=== PATIENT | female | born 1950 | race Caucasian/White ===

== ENCOUNTER → 2017-04-12 | Outpatient (CLI) | payer OTHER ==
[2014-09-04 09:49] VITALS: BP 164/69
--- NOTE | 2017-04-13 18:19 | MG ---
HISTORY: SCREENING Comparison: March 25, 2015 and March 31, 2016 FINDINGS: Bilateral CC and MLO projections of the right and left breast were obtained. Scattered fibroglandula r tissue is seen to be present without significant interval change. No suspicious architectural dist ortion, mass or clustered microcalcifications can be observed to suggest malignancy. No skin thicken ing or nipple retraction is appreciated. No pathological lymphadenopathy can be identified. Benign- appearing calcifications are noted within the right and left breast. IMPRESSION: NO RADIOGRAPHIC EVIDENCE OF MALIGNANCY. ACR CATEGORY 2 - benign findings. FOLLOW-UP EXAM 1 YEAR. Diagnostic CAD was utilized and reviewed. * 0 (ZERO) - ASSESSMENT INCOMPLETE; ADDITIONAL IMAGING IS NEEDED. * 1/1 (ONE) - NEGATIVE. * 2/II (TWO) - BENIGN FINDINGS. * 3/III (THREE) - PROBABLY BENIGN FINDING; SHORT INTERVAL FOLLOW-UP SUGGESTED. * 4/IV (FOUR) - SUSPICIOUS ABNORMALITY; BIOPSY SHOULD BE CONSIDERED. * 5/V - HIGHLY SUSPICIOUS OF MALIGNANCY; BIOPSY SHOULD BE PERFORMED. A NEGATIVE X-RAY REPORT SHOULD NOT DELAY BIOPSY IF A DOMINANT OR CLINICALLY SUSPICIOUS MASS IS PRESENT; 4 TO 8 PERCENT OF CANCERS ARE NOT IDENTIFIED BY X-RAY. A NEGA TIVE REPORT MAY REINFORCE THE CLINICAL IMPRESSION. ADENOSIS AND DENSE BREASTS MAY OBSCURE AN UNDERLY ING NEOPLASM. Reported By:
== END ==
LOC: RAD 09:11
PROVIDERS: ATTEND Internal Medicine
DX: Z12.31 Encounter for screening mammogram for malignant neoplasm of breast (principal)
CPT/HCPCS: 77067

== ENCOUNTER 2019-03-08 14:40 | Inpatient (IN) ==
[2019-03-08 14:43] VITALS: BMI 38.7
--- NOTE | 2019-03-08 15:06 | ED.ABDFE ---
HPI Time Seen Time Seen by Provider: 03/08/19 15:06 PCP Primary Care Physician: FELIPE HPI Comment HPI Comment: PPATIENT IS 69YR OLD WHITE FEMALE IN THE EMERGENCY ROOM WITH SEVERE RUQ ABDOMINAL PAIN TIMES 3 DAYS. WORSE TODAY. SAW PCP THIS AM. WANTED CT DONE FOR EVALUATION OF PAIN. NO FEVER, NAUSEA OR VOMITING.. HAD RIFGR NEPHRECTOMY FOR CA IN THE PAST. Complaint Doctors Chief Complaint Comments: RUQ ABDOMINAL PAIN TIMES 3 DAYS. Chief Complaint:: PT. C/O SEVERE RIGHT FLANK/RUQ PAIN WHICH BEGAN ON TUESDAY. PT. SEEN PCP THIS MORNING. PT. STATES SHE THOUGHT SHE HAD A PULLED MUSCLE BUT THE PAIN HAS GOTTEN WORSE. Reviewed Nurses Notes Review: Yes Source History Provided: Patient Mode of arrival Mode of Arrival: Ambulatory Timing Onset of Chief Complaint: 03/05/19 Came on: Suddenly Duration Since Onset: Constant Duration: Days Location Location: RUQ Severity Severity: Severe Context History of: None Modifying factors Worsening Factors: Exertion Improving Factors: Lying Still Associated signs and symptoms Associated Signs and Symptoms: None Other history Other History: HISTORY GALL STONE. PMH PMH Past Medical History: Yes Past Medical History: Hypertension and Hypothyroidism Past Surgical History: Yes Surgical History: , Hysterectomy, Tonsillectomy and Other Past Surgical History Comment: RIGHT NEPHRECTOMY, CATARACTS Family History History of Family Medical Conditions: Yes Family Medical History: Diabetes Mellitus and Heart Failure Social History Does patient currently use any type of tobacco product: No Have you used tobacco products in the last 12 months: No Type of Tobacco Use: None Does any household member use tobacco: No Alcohol Use: None Do you use any recreational Drugs:: No Lives With: Spouse Lives Where: Home infectious screening In the last 2 months have you had wt loss of >10#?: NO Have you had fever, night sweats or hemotysis?: No Have you traveled outside the country in the last 6 months?: No Isolation: Standard ROS Review of Systems Constitutional: No Symptoms Reported and See HPI; negative Fever, Weakness and Fatigue Eyes: No Symptoms Reported and See HPI; negative Blurred Vision, Photophobia and Diplopia ENTM: No Symptoms Reported and See HPI; negative Ear Pain, Nose Discharge, Nose Congestion and Throat Pain Respiratoy: No Symptoms Reported and See HPI; negative Moist Cough, Short of Breath and Wheezing Cardiovascular: No Symptoms Reported and See HPI; negative Chest Pain and Edema Gastrointestinal/Abdominal: No Symptoms Reported, See HPI and Abdominal Pain; negative Constipation, Diarrhea, Nausea and Vomiting Genitourinary: No Symptoms Reported and See HPI; negative Dysuria, Frequency, Hematuria and Pain Neurological: No Symptoms Reported and See HPI; negative Headache, Weakness and Dizziness Musculoskeletal: See HPI, Back Pain and Muscle Pain Integumentary: No Symptoms Reported and See HPI; negative Change in Color, Rash and Juandice Hematologic/Lymphatic: No Symptoms Reported and See HPI; negative Easy Bruising and Swollen Glands Endocrine: No Symptoms Reported and See HPI; negative Increased Thirst and Increased Urine Psychiatric: No Symptoms Reported and See HPI All Other Systems: Reviewed and Negative PE Vital Signs Vitals: Temperature 97 F Pulse Rate 86 Respiratory Rate 18 Blood Pressure 196/82 O2 Sat by Pulse Oximetry 99 General Limitations: No Limitations and Language Barrier General Appearance: Alert and In No Apparent Distress Head Head Exam: Normal Inspection and Atraumatic Eyes Eye exam: Normal Appearance, PERRL and EOMI; negative Scleral Icterus and Conjunctival Injection ENT ENT Exam: Normal Exam, Normal Oropharynx, Normal External Ear Exam and TM's Normal Bilaterally Neck Neck Exam: Normal Inspection; negative Trachea Midline, Tenderness and Lymphadenopathy Chest Chest Inspection: Normal Inspection and Symmetric Chest Wall Rise; negative Tenderness Respiratory Respiratory Exam: Normal Lung Sounds Bilat; negative Accessory Muscle Use, Chest Wall Tenderness and Respiratory Distress Respiratory Exam: Bilateral: Clear to Auscultation Cardiovascular Cardiovascular Exam: Regular Rate and Normal Rhythm Abdominal Exam Abdominal Exam: Normal Bowel Sounds and Soft; negative Tenderness Rectal Rectal Exam: Deferred Back Back Exam: Normal Inspection and (R) CVA Tenderness Extremeties Extremities Exam: Normal Inspection External Exam: Female: Deferred : Speculum Exam (Female): Deferred : Bimanual Exam (female): Deferred Neurologic Neurological Exam: Alert and Oriented X3; negative CN II-XII Intact and Motor Sensory Deficit Psychiatric Psychiatric Exam: Normal Affect and Normal Mood Skin Skin Exam: Warm, Dry and Intact MDM Differential Diagnosis Differential Diagnosis- Considerations may include:: Bowel Obstruction, Chol cystitis, Cholelethiasis, Constipation, Diverticular disease, Gastritus/PUD, Pancreatitis, Urinary tract infection and Urolithiasis COURSE Treatment Treatment: SEE ORDERS. Consultation Consultation Comments: DISCUSSED PATIENT WITH DR. DUPONT, SURGEON. WANT PCP TO ADMIT PATIENT FOR POSSIBLE CHOLECYSTECTOM. DR. WANG WILL ADMIT PATIENT. Education/Counseling Education/Counseling: Patient Educated On: Diagnosis ROR Labs Reviewed Laboratory Results Reviewed?: Yes Result Diagrams: 03/09/19 05:50 03/09/19 05:50 Laboratory: WBC 10.2 X10^3/uL (3.6-10.0) H 03/08/19 15:37 RBC 4.46 X10^6/uL (3.5-5.4) 03/08/19 15:37 Hgb 13.0 g/dL (12.0-16.0) 03/08/19 15:37 Hct 38.8 % (36.0-47.0) 03/08/19 15:37 MCV 86.9 fL (80.0-100.0) 03/08/19 15:37 MCH 29.0 pg (27.0-34.0) 03/08/19 15:37 MCHC 33.4 g/dL (33.0-35.0) 03/08/19 15:37 RDW 15.0 % (11.6-16.5) 03/08/19 15:37 Plt Count 348 X10^3/uL (150.0-450.0) 03/08/19 15:37 MPV 6.6 fL (7.4-11.0) L 03/08/19 15:37 Neut % (Auto) 78.2 % (42.0-75.0) H 03/08/19 15:37 Lymph % (Auto) 14.4 % (21.0-51.0) L 03/08/19 15:37 [place] % (Auto) 5.7 % (0.0-13.0) 03/08/19 15:37 Eos % (Auto) 1.2 % (0.9-2.9) 03/08/19 15:37 Baso % (Auto) 0.5 % (0.2-1.0) 03/08/19 15:37 Neut # (Auto) 8.0 x10^3/uL (2.2-4.8) H 03/08/19 15:37 Lymph # (Auto) 1.5 X10^3/uL (1.3-2.9) 03/08/19 15:37 [place] # (Auto) 0.6 x10^3/uL (0.3-0.8) 03/08/19 15:37 Eos # (Auto) 0.1 x10^3/uL (0.0-0.2) 03/08/19 15:37 Baso # (Auto) 0.1 X10^3/uL (0.0-0.1) 03/08/19 15:37 Absolute Nucleated RBC 0.0 /100WBC 03/08/19 15:37 Sodium 137 mmol/L (136-145) 03/08/19 15:37 Corrected Sodium 138 mmol/L (136-145) 03/08/19 15:37 Potassium 4.4 mmol/L (3.5-5.1) 03/08/19 15:37 Chloride 101 mmol/L (98-107) 03/08/19 15:37 Carbon Dioxide 31.7 mmol/L (21-32) 03/08/19 15:37 BUN 28 mg/dL (7-18) H 03/08/19 15:37 Creatinine 1.22 mg/dL (0.55-1.02) H 03/08/19 15:37 Est GFR (MDRD) Af Amer 56 (>60) L 03/08/19 15:37 Est GFR (MDRD) Non-Af 46 (>60) L 03/08/19 15:37 Glucose 151 mg/dL (65-99) H 03/08/19 15:37 Calcium 9.6 mg/dL (8.5-10.1) 03/08/19 15:37 Corrected Calcium TNP 03/08/19 15:37 Total Bilirubin 0.10 mg/dL (0.2-1.0) L 03/08/19 15:37 AST 18 Units/L (15-37) 03/08/19 15:37 ALT 19 Units/L (12-78) 03/08/19 15:37 Alkaline Phosphatase 62 Units/L (46-116) 03/08/19 15:37 Creatine Kinase 106 Units/L (26-192) 03/08/19 15:37 CK-MB (CK-2) 1.6 ng/mL (0-4.0) 03/08/19 15:37 CK/CKMB % Calc 1.5 % (<4) 03/08/19 15:37 Troponin I < 0.02 ng/mL (0-1.5) 03/08/19 15:37 Total Protein 7.9 g/dL (6.4-8.2) 03/08/19 15:37 Albumin 3.6 g/dL (3.4-5.0) 03/08/19 15:37 Globulin 4.3 g/dL (2.5-4.5) 03/08/19 15:37 Albumin/Globulin Ratio 0.8 Ratio (1.1-2.1) L 03/08/19 15:37 Amylase 78 Units/L (25-115) 03/08/19 15:37 Lipase 185 Units/L (73-393) 03/08/19 15:37 Specimen Type Clean catch urine 03/08/19 15:33 Urine Color Yellow (YELLOW) 03/08/19 15:33 Urine Appearance Clear (CLEAR) 03/08/19 15:33 Urine pH 7.0 (5.0 - 8.0) 03/08/19 15:33 Ur Specific [place] 1.010 (1.000-1.030) 03/08/19 15:33 Urine Protein 1+ (NEGATIVE) 03/08/19 15:33 Urine Glucose (UA) Negative (NEGATIVE) 03/08/19 15:33 Urine Ketones Negative (NEGATIVE) 03/08/19 15:33 Urine Occult Blood Negative (NEGATIVE) 03/08/19 15:33 Urine Nitrite Negative (NEGATIVE) 03/08/19 15:33 Urine Bilirubin Negative (NEGATIVE) 03/08/19 15:33 Urine Urobilinogen Normal (NORMAL) 03/08/19 15:33 Ur Leukocyte Esterase Negative (NEGATIVE) 03/08/19 15:33 Urine RBC 0-2 /HPF (0-3) 03/08/19 15:33 Urine WBC 0-2 /HPF (0-5) 03/08/19 15:33 Ur Squamous Epith Cells Rare /HPF (NEGATIVE) 03/08/19 15:33 Urine Bacteria Negative /HPF (NEGATIVE) 03/08/19 15:33 Ur Culture Indicated? No/not indicated 03/08/19 15:33 XRAY XRAY Interpreted by: Radiologist XRAY Findings: REPORT NOTED AND DISCUSSED WITH PATIENT. EKG Rate: 94 [place]: Normal Rhythm: NSR Block: None Hypertrophy: None ST: Old, Inf, Infarct and Nonsp Opioid Opioid Risk Tool Age (Carlos box if 16-45): No History of Preadolescent Sexual Abuse: No Total: 0 Total Score Risk Category: Low Risk Copyright: Raphael VILLA predicting aberrant behaviors Diagnosis Discharge Problem: Acute cholecystitis, Abdominal pain, RUQ Cholelithiasis Qualifiers: Cholelithiasis location: gallbladder Cholecystitis presence: with cholecystitis Cholecystitis acuity: acute Biliary obstruction: without biliary obstruction Qualified Code(s): K80.00 - Calculus of gallbladder with acute cholecystitis without obstruction
[2019-03-08 15:40] LABS: BILIRUBIN,URINE NEGATIVE (NEGATIVE); BLOOD/HEMOGLOBIN,URINE NEGATIVE (NEGATIVE); GLUCOSE, URINE NEGATIVE (NEGATIVE); KETONES,URINE NEGATIVE (NEGATIVE); LEUKOCYTE ESTERASE ,URINE NEGATIVE (NEGATIVE); NITRITES,URINE NEGATIVE (NEGATIVE); PROTEIN,URINE 1+ (NEGATIVE); UROBILINOGEN,URINE NORMAL (NORMAL)
[2019-03-08 15:47] LABS: APPEARANCE,URINE CLEAR (CLEAR); COLOR,URINE YELLOW (YELLOW)
[2019-03-08 15:49] LABS: BACTERIA,URINE NEGATIVE /HPF (NEGATIVE); RBC,URINE 0-2 /HPF (0-3); SQUAMOUS EPITHELIAL CELL,UR RARE /HPF (NEGATIVE)
[2019-03-08 15:52] LABS: BASOPHILS # (AUTO) 0.1 X10^3/uL (0.0-0.1); BASOPHILS % (AUTO) 0.5 % (0.2-1.0); EOSINOPHILS # (AUTO) 0.1 x10^3/uL (0.0-0.2); EOSINOPHILS % (AUTO) 1.2 % (0.9-2.9); HEMATOCRIT 38.8 % (36.0-47.0); LYMPHOCYTES # (AUTO) 1.5 X10^3/uL (1.3-2.9); LYMPHOCYTES % (AUTO) 14.4 % (21.0-51.0); MEAN CORPUSCULAR HGB CONC 33.4 g/dL (33.0-35.0); MEAN CORPUSCULAR VOLUME 86.9 fL (80.0-100.0); MEAN PLATELET VOLUME 6.6 fL (7.4-11.0); MONOCYTES # (AUTO) 0.6 x10^3/uL (0.3-0.8); MONOCYTES % (AUTO) 5.7 % (0.0-13.0); NEUTROPHILS % (AUTO) 78.2 % (42.0-75.0); PLATELET COUNT 348 X10^3/uL (150.0-450.0); RED BLOOD COUNT 4.46 X10^6/uL (3.5-5.4); WHITE BLOOD COUNT 10.2 X10^3/uL (3.6-10.0)
[2019-03-08 16:02] LABS: ALANINE AMINOTRANSFERASE 19 Units/L (12-78); ALBUMIN 3.6 g/dL (3.4-5.0); ALKALINE PHOSPHATASE 62 Units/L (46-116); AMYLASE 78 Units/L (25-115); ASPARTATE AMINO TRANSFERASE 18 Units/L (15-37); BLOOD UREA NITROGEN 28 mg/dL (7-18); CALCIUM 9.6 mg/dL (8.5-10.1); CARBON DIOXIDE 31.7 mmol/L (21-32); CHLORIDE 101 mmol/L (98-107); COR NA(FOR HYPERGLY) 138 mmol/L (136-145); CREATININE 1.22 mg/dL (0.55-1.02); LIPASE 185 Units/L (73-393); SODIUM 137 mmol/L (136-145); TOTAL PROTEIN 7.9 g/dL (6.4-8.2); eGFR NON BLACK RACES 46 (>60)
--- NOTE | 2019-03-08 17:25 | CT ---
History: PainExam: CT abdomen and pelvis without contrastComparison: NoneTechnique: Axial spiral images were obtained from lung bases through the pubic symphysis without contrast. Automated dose control was utilized.Findings:The lung bases are clear. The liver and spleen are normal size and density. The gallbladder is mildly dilated with a large rounded calcification lodged near the neck region measuring 3.5 cm and smaller calcifications near the fundus. There is mild wall thickening and mild inflammatory stranding extending into the adjacent mesentery around the gallbladder extending inferiorly there are some small slightly focal hypodensities along the anterior and medial lau of the gallbladder along the fundus measuring 2-3 cm which are ill-defined . The bile ducts and pancreas are normal. The right kidney is not visualized and there are surgical clips in the right renal fossa. The left kidney is normal size with perirenal stranding around the kidney. There is no obvious hydronephrosis. The left ureter is normal caliber down to the bladder. The bladder is well distended with no filling defects. No adenopathy or ascites is seen . The appendix is normal . The uterus has been removed with no adnexal mass or free fluid. The bladder is unremarkable. There is mild fat density along the inguinal regions with no bowel loops in the area. The mesentery is unremarkable. The bones are intact.IMPRESSION: Mild hydrops of the gallbladder and associated cholelithiasis with mild wall thickening and adjacent mild inflammatory stranding suggestive of associated cholecystitis. There are ill-defined 2-3 cm focal hypodensities along the anterior and medial lau of the gallbladder which could represent focal phlegmonous inflammatory changes or possible developing small early pericholecystic abscesses which cannot be further characterized without contrast. Recommend ultrasound correlation and surgical follow-up.Status post right nephrectomy otherwise, unremarkable left kidney.Status post hysterectomy with no pelvic mass.Questionable small inguinal hernias bilaterally.Reported By:
--- NOTE | 2019-03-08 17:58 | RAD ---
History: Preop for gallbladder surgeryExam: Chest x-rayComparison: NoneTechnique: Portable AP chestFindings:The heart is normal. The pulmonary vessels are normal. The lungs are mildly hyperinflated and emphysematous. No consolidation or effusion is seen.IMPRESSION: No acute cardiopulmonary abnormality.Reported By:
[2019-03-08 18:31] LABS: CKMB % 1.5 % (<4); CREATINE KINASE 106 Units/L (26-192); CREATINE KINASE MB 1.6 ng/mL (0-4.0); TROPONIN I < 0.02 ng/mL (0-1.5)
[2019-03-08] MEDS ORDERED: ZOFRAN INJ 4 MG VIAL IM ONE (20:00)
[2019-03-08] MEDS ORDERED: MORPHINE SULFATE INJ 4 MG IM ONE (20:00)
[2019-03-08] MEDS ORDERED: ZOFRAN INJ 4 MG VIAL ONE (20:02)
[2019-03-08] MEDS ORDERED: MORPHINE SULFATE INJ 4 MG ONE (20:02)
[2019-03-08] MEDS ORDERED: ZOFRAN INJ 4 MG VIAL IVP PRN (21:23)
[2019-03-08] MEDS ORDERED: MORPHINE SULFATE INJ 2 MG INJ IVP PRN (21:23)
[2019-03-08] MEDS: FLAGYL IV PREMIX 500 MG BAG 500 MG/100 ML BAG IV SCH (22:30)
[2019-03-08] MEDS: NS 1000 ML 1,000 ML IV SCH (22:30)
[2019-03-08] MEDS: ZOSYN VIAL 3.375 GRAMS 3.375 G in NS 100 ML IV + SPIKE MINIBAG* 100 ML IV SCH ×2 (22:30→22:59)
[2019-03-09] MEDS: FLAGYL IV PREMIX 500 MG BAG 500 MG/100 ML BAG IV SCH ×4 (02:44→20:45)
[2019-03-09] MEDS: ZOSYN VIAL 3.375 GRAMS 3.375 G in NS 100 ML IV + SPIKE MINIBAG* 100 ML IV SCH ×3 (05:52→22:00)
[2019-03-09 06:15] LABS: BASOPHILS % (AUTO) 0.4 % (0.2-1.0); EOSINOPHILS # (AUTO) 0.1 x10^3/uL (0.0-0.2); EOSINOPHILS % (AUTO) 0.8 % (0.9-2.9); HEMATOCRIT 34.9 % (36.0-47.0); HEMOGLOBIN 11.7 g/dL (12.0-16.0); LYMPHOCYTES # (AUTO) 2.1 X10^3/uL (1.3-2.9); LYMPHOCYTES % (AUTO) 23.4 % (21.0-51.0); MEAN CORPUSCULAR HEMOGLOBIN 29.2 pg (27.0-34.0); MEAN CORPUSCULAR HGB CONC 33.6 g/dL (33.0-35.0); MEAN CORPUSCULAR VOLUME 86.9 fL (80.0-100.0); MEAN PLATELET VOLUME 6.4 fL (7.4-11.0); MONOCYTES # (AUTO) 0.7 x10^3/uL (0.3-0.8); MONOCYTES % (AUTO) 7.6 % (0.0-13.0); NEUTROPHILS # (AUTO) 6.2 x10^3/uL (2.2-4.8); NEUTROPHILS % (AUTO) 67.8 % (42.0-75.0); PLATELET COUNT 335 X10^3/uL (150.0-450.0); RED BLOOD COUNT 4.02 X10^6/uL (3.5-5.4); RED CELL DISTRIBUTION WIDTH 14.6 % (11.6-16.5); WHITE BLOOD COUNT 9.2 X10^3/uL (3.6-10.0)
[2019-03-09 06:43] LABS: ALANINE AMINOTRANSFERASE 28 Units/L (12-78); ALKALINE PHOSPHATASE 61 Units/L (46-116); AMYLASE 119 Units/L (25-115); ASPARTATE AMINO TRANSFERASE 27 Units/L (15-37); BLOOD UREA NITROGEN 21 mg/dL (7-18); CALCIUM 8.8 mg/dL (8.5-10.1); CHLORIDE 105 mmol/L (98-107); COR CA(FOR HYPOALB) 9.6 mg/dL (8.5-10.1); COR NA(FOR HYPERGLY) 139 mmol/L (136-145); CREATININE 1.08 mg/dL (0.55-1.02); LIPASE 369 Units/L (73-393); SODIUM 139 mmol/L (136-145); TOTAL PROTEIN 6.7 g/dL (6.4-8.2); eGFR NON BLACK RACES 53 (>60)
--- NOTE | 2019-03-09 09:32 | DR.H&P ---
H&P - History & Physical for Day of: H&P Date: 03/08/19 - Chief Complaint Chief Complaint: ABDOMINAL PAIN - History of Present Illness History of Present Illness: IS A 69 YEAR OLD PATIENT OF OURS WHO PRESENTED TO THE ER WITH COMPLAINTS OF SEVERE RUQ ABDOMINAL PAIN X 3 DAYS. PAIN HAS GOTTEN INCREASINGLY WORSE. ON ARRIVAL TO THE ER, VITALS WERE 97.0-86-18-99%-196/82. LABS WERE OBTAINED. ABNORMAL LAB VALUES INCLUDE THE FOLLOWING: WBC 10.2, BUN 28, CREATININE 1.22, GLUCOSE 151, TOTAL BILI 0.10. CARDIAC ENZYMES WITHIN NORMAL LIMITS. URINALYSIS IS UNREMARKABLE. AN ABDOMEN/PELVIS CT WAS OBTAINED AND REVEALED: Mild hydrops of the gallbladder and associated cholelithiasis with mild wall thickening and adjacent mild inflammatory stranding suggestive of associated cholecystitis. There are ill- defined 2-3 cm focal hypodensities along the anterior and medial lau of the gallbladder which could represent focal phlegmonous inflammatory changes or possible developing small early pericholecystic abscesses which cannot be further characterized without contrast. Recommend ultrasound correlation and surgical follow-up. Status post right nephrectomy otherwise, unremarkable left kidney. Status post hysterectomy with no pelvic mass. Questionable small inguinal hernias bilaterally. A CHEST XRAY WAS OBTAINED AND REVEALED: NO ACUTE CARDIOPULMONARY ABNORMALITY. EKG REVEALED: SINUS RHYTHM WITH HR 94. SHE WAS GIVEN ZOFRAN 4MG IV X 2 DOSES AND MORPHINE 4MG IV X 2 DOSES. SHE WAS ADMITTED FOR FURTHER EVALUATION AND TREATMENT OF ACUTE CHOLECDYSTITIS AND RUQ PAIN. WE CONSULTED WITH AT LENGTH, AT LEAST 16 MINUTES, REGUARDING PATIENTS HISTORY AND PLAN OF CARE. HE PLANS FOR A CHOLECYSTECTOMY TODAY. WE ARE IN AGREEMENT WITH PLAN. SHE IS MEDICALLY STABLE AND CLEAR FOR SURGERY. SHE WAS STARTED ON NORMAL SALINE AT 75ML/HR, ZOSYN 3.375G IV TID, ZOFRAN 4MG IV Q6H PRN, MORPHINE 4MG IV Q6H PRN, AND FLAGYL 500MG IV Q6H. OTHERWISE, WE PLAN TO FOLLOW UP WITH AM LABS AND CONTINUE TO MONITOR. - Past Medical History Past Medical History: Hypertension, Hypothyroidism - Past Surgical History Surgical History: , Hysterectomy, Tonsillectomy, Other - Family History Family Medical History: Diabetes Mellitus, Cancer, Heart Failure - Social History Does patient currently use any type of tobacco product: No Have you used tobacco products in the last 12 months: No Type of Tobacco Use: None Does any household member use tobacco: No Alcohol Use: None Drug Use: None - Medications Home Medications: azithromycin Allergy (Verified 03/08/19 14:43) CONTINUE taking the following medications aspirin [Aspirin Low Dose] 81 mg PO DAILY 03/08/19 [History] clonazepam 0.5 mg PO DAILY 03/08/19 [History] cyanocobalamin (vitamin B-12) 1,000 mcg IM .TWICEMONTHLY 03/08/19 [History] levothyroxine 50 mcg PO DAILY 03/08/19 [History] montelukast [Singulair] 10 mg PO DAILY 03/08/19 [History] quinapril 40 mg PO DAILY 03/08/19 [History] triamterene-hydrochlorothiazid 1 cap PO DAILY 03/08/19 [History] - Review of Systems Constitutional: Weakness Eyes: No Symptoms Reported ENT: No Symptoms Reported Respiratory: No Symptoms Reported Cardiovascular: No Symptoms Reported Gastrointestinal: Nausea, Abdominal Pain Genitourinary: No Symptoms Reported Musculoskeletal: No Symptoms Reported Skin: No Symptoms Reported Neurological: Weakness - Physical Exam Vital Signs: Temperature 97.9 F Pulse Rate [Right Brachial] 68 Pulse Rate 86 Respiratory Rate 19 Blood Pressure [Left Arm] 163/69 Blood Pressure [Right Arm] 143/64 Blood Pressure 196/82 O2 Sat by Pulse Oximetry 97 Oriented: Normal Eyes: Normal Ear: Normal Nose: Normal Throat: Normal Respiratory: Diminished Throughout Cardiovascular: Normal : Normal Auscultation: Bowel Sounds: Normal Palpation: Normal Tenderness: RUQ Skin: Normal Musculoskeletal: Normal Psychiatric: Normal Mood Description: Calm Affect: Normal Speech Pattern: Clear - Assessment/Plan (1) Acute cholecystitis Status: Acute Plan: ADMIT, LAPCHOLE TODAY, NORMAL SALINE AT 75ML/HR, ZOSYN 3.375G IV TID, ZOFRAN 4MG IV Q6H PRN, MORPHINE 4MG IV Q6H PRN, AND FLAGYL 500MG IV Q6H. (2) Cholelithiasis Qualifiers: Cholelithiasis location: gallbladder Cholecystitis presence: with cholecystitis Cholecystitis acuity: acute Biliary obstruction: without biliary obstruction Qualified Code(s): K80.00 - Calculus of gallbladder with acute cholecystitis without obstruction Status: Acute (3) Abdominal pain, RUQ Status: Acute - Allergies Allergies/Adverse Reactions: Allergies Allergy/AdvReac Type Severity Reaction Status Date / Time azithromycin Allergy Verified 03/08/19 14:43
[2019-03-09] MEDS ORDERED: LR 1000 ML IV 1,000 ML IV ONE ×2 (10:49→13:33)
[2019-03-09] MEDS ORDERED: FENTANYL INJ 250 mcg ONE (10:49)
[2019-03-09] MEDS ORDERED: ANCEF VIAL 1 GRAM ONE (10:50)
[2019-03-09] MEDS ORDERED: NS 100 ML IV 100 ML IV ONE (10:50)
[2019-03-09] MEDS: NS 1000 ML 1,000 ML IV SCH ×2 (12:00→17:42)
[2019-03-09] MEDS ORDERED: BACITRACIN VIAL ONE (13:37)
[2019-03-09] MEDS ORDERED: BACTROBAN TOPICAL OINT ONE (13:53)
[2019-03-09] MEDS ORDERED: ZOFRAN INJ 4 MG VIAL IVP PRN (14:20)
[2019-03-09] MEDS ORDERED: BENADRYL INJ 50 MG VIAL IVP PRN (14:20)
[2019-03-09] MEDS ORDERED: REGLAN INJ 10 MG VIAL IVP PRN (14:20)
[2019-03-09] MEDS ORDERED: PHENERGAN INJ 25 MG IM PRN (14:20)
[2019-03-09] MEDS ORDERED: DILAUDID INJ ONE (14:30)
[2019-03-09] MEDS: DILAUDID INJ IVP PRN ×2 (14:31→14:36)
--- NOTE | 2019-03-09 14:35 | OR.IMMED ---
Immediate Post-Op Note - Immediate Post-Op Note Pre-Op Diagnosis: acute cholecystitis with hydrops of the GB. Post-Op Diagnosis: perforated GB with abscess formation around the GB and thick dense scars . abdominal adhesions . obesity . Procedure: diagnostic laparoscopy , lysis of adhesions . lap vikram . drainage . Surgeon/Compressed Air Pile Driver Operator: Pricila. Findings: as above . Specimens Removed: GB with large stones . Estimated Blood Loss: 50cc. Drains: Santino Tuttle (on IV ATB . IVF . and PO care .)
[2019-03-09] MEDS ORDERED: DILAUDID INJ IVP PRN (14:38)
[2019-03-09] MEDS: D5 1/2 NS 1000 ML 1,000 ML IV SCH (15:04)
[2019-03-10] MEDS: D5 1/2 NS 1000 ML 1,000 ML IV SCH ×4 (00:54→20:17)
[2019-03-10] MEDS: FLAGYL IV PREMIX 500 MG BAG 500 MG/100 ML BAG IV SCH ×4 (02:06→20:17)
[2019-03-10] MEDS: ZOSYN VIAL 3.375 GRAMS 3.375 G in NS 100 ML IV + SPIKE MINIBAG* 100 ML IV SCH ×3 (05:28→22:21)
[2019-03-10 06:13] LABS: BASOPHILS % (AUTO) 0.2 % (0.2-1.0); HEMATOCRIT 33.5 % (36.0-47.0); HEMOGLOBIN 11.2 g/dL (12.0-16.0); LYMPHOCYTES # (AUTO) 1.5 X10^3/uL (1.3-2.9); LYMPHOCYTES % (AUTO) 10.6 % (21.0-51.0); MEAN CORPUSCULAR HEMOGLOBIN 29.1 pg (27.0-34.0); MEAN CORPUSCULAR HGB CONC 33.4 g/dL (33.0-35.0); MEAN CORPUSCULAR VOLUME 87.1 fL (80.0-100.0); MEAN PLATELET VOLUME 6.7 fL (7.4-11.0); MONOCYTES % (AUTO) 7.3 % (0.0-13.0); NEUTROPHILS # (AUTO) 11.5 x10^3/uL (2.2-4.8); NEUTROPHILS % (AUTO) 81.9 % (42.0-75.0); PLATELET COUNT 296 X10^3/uL (150.0-450.0); RED BLOOD COUNT 3.85 X10^6/uL (3.5-5.4); RED CELL DISTRIBUTION WIDTH 14.7 % (11.6-16.5)
[2019-03-10 06:31] LABS: ALBUMIN 2.6 g/dL (3.4-5.0); CALCIUM 8.4 mg/dL (8.5-10.1); CARBON DIOXIDE 27.8 mmol/L (21-32); COR CA(FOR HYPOALB) 9.5 mg/dL (8.5-10.1); CREATININE 1.31 mg/dL (0.55-1.02); TOTAL PROTEIN 6.3 g/dL (6.4-8.2)
[2019-03-10] MEDS: LOVENOX INJ 40 MG SYR SC SCH (08:07)
[2019-03-10] MEDS: PROTONIX INJ 40 MG VIAL IVP SCH (08:08)
[2019-03-10] MEDS ORDERED: QUELICIN (OR ANECTINE) ONE (10:36)
[2019-03-10] MEDS ORDERED: NEOSTIGMINE INJ ONE (10:36)
[2019-03-10] MEDS ORDERED: NORCURON INJ 10 MG VIAL ONE (10:36)
[2019-03-10] MEDS ORDERED: ROBINUL ONE (10:36)
[2019-03-10] MEDS ORDERED: VERSED ONE (10:36)
[2019-03-10] MEDS ORDERED: DIPRIVAN VIAL ONE (10:36)
[2019-03-10] MEDS ORDERED: SUPRANE ONE (10:36)
[2019-03-10] MEDS ORDERED: TORADOL 30 MG VIAL ONE (10:36)
--- NOTE | 2019-03-10 10:41 | DR.PROGNOT ---
Hospital Progress Notes - Progress Note for Day of: Progress Note Date: 03/10/19 - Chief Complaint Chief Complaint: post op lap virkam and drainage . c/o incisional and epigastric pain . no nausea or vomiting . minimal drainage in ULISSES . WBC 14.ooo Lipase 369 . amyulase 119 - Past Medical Family Social History Past Med/Fam/Surg Hx: No changes since H&P Allergies: Allergies azithromycin Allergy (Verified 03/08/19 14:43) - Review Of Systems ROS: No change since H&P - Vital Signs Vital Signs: Temperature 98.0 F Pulse Rate [Right Brachial] 68 Pulse Rate 69 Respiratory Rate 18 Blood Pressure [Left Arm] 153/74 Blood Pressure [Right Arm] 143/64 Blood Pressure 182/86 O2 Sat by Pulse Oximetry 95 - Physical Exam Oriented: Normal Eyes: Normal Ear: Normal Nose: Normal Throat: Normal Respiratory: Normal Cardiovascular: Normal : Normal GI:Auscultation: Normal GI:Palpation: Normal GI: Tenderness: RUQ, Epigastric (soft abdomen , BS+) Skin: Normal Musculoskeletal: Normal Psychiatric: Normal Mood Description: Calm Affect: Normal Speech Pattern: Clear, Appropriate - Laboratory and Diagnostics Result Diagrams: 03/10/19 05:38 03/10/19 05:38 Labs: 03/09/19 12:26 Gallbladder Fluid - Preliminary Laboratory WBC 14.0 X10^3/uL (3.6-10.0) H 03/10/19 05:38 RBC 3.85 X10^6/uL (3.5-5.4) 03/10/19 05:38 Hgb 11.2 g/dL (12.0-16.0) L 03/10/19 05:38 Hct 33.5 % (36.0-47.0) L 03/10/19 05:38 MCV 87.1 fL (80.0-100.0) 03/10/19 05:38 MCH 29.1 pg (27.0-34.0) 03/10/19 05:38 MCHC 33.4 g/dL (33.0-35.0) 03/10/19 05:38 RDW 14.7 % (11.6-16.5) 03/10/19 05:38 Plt Count 296 X10^3/uL (150.0-450.0) 03/10/19 05:38 MPV 6.7 fL (7.4-11.0) L 03/10/19 05:38 Neut % (Auto) 81.9 % (42.0-75.0) H 03/10/19 05:38 Lymph % (Auto) 10.6 % (21.0-51.0) L 03/10/19 05:38 [place] % (Auto) 7.3 % (0.0-13.0) 03/10/19 05:38 Eos % (Auto) 0.0 % (0.9-2.9) L 03/10/19 05:38 Baso % (Auto) 0.2 % (0.2-1.0) 03/10/19 05:38 Neut # (Auto) 11.5 x10^3/uL (2.2-4.8) H 03/10/19 05:38 Lymph # (Auto) 1.5 X10^3/uL (1.3-2.9) 03/10/19 05:38 [place] # (Auto) 1.0 x10^3/uL (0.3-0.8) H 03/10/19 05:38 Eos # (Auto) 0.0 x10^3/uL (0.0-0.2) 03/10/19 05:38 Baso # (Auto) 0.0 X10^3/uL (0.0-0.1) 03/10/19 05:38 Absolute Nucleated RBC 0.0 /100WBC 03/10/19 05:38 Sodium 138 mmol/L (136-145) 03/10/19 05:38 Corrected Sodium 139 mmol/L (136-145) 03/10/19 05:38 Potassium 4.1 mmol/L (3.5-5.1) 03/10/19 05:38 Chloride 105 mmol/L (98-107) 03/10/19 05:38 Carbon Dioxide 27.8 mmol/L (21-32) 03/10/19 05:38 BUN 26 mg/dL (7-18) H 03/10/19 05:38 Creatinine 1.31 mg/dL (0.55-1.02) H 03/10/19 05:38 Est GFR (MDRD) Af Amer 51 (>60) L 03/10/19 05:38 Est GFR (MDRD) Non-Af 43 (>60) L 03/10/19 05:38 Glucose 151 mg/dL (65-99) H 03/10/19 05:38 Calcium 8.4 mg/dL (8.5-10.1) L 03/10/19 05:38 Corrected Calcium 9.5 mg/dL (8.5-10.1) 03/10/19 05:38 Total Bilirubin 0.20 mg/dL (0.2-1.0) 03/10/19 05:38 AST 35 Units/L (15-37) 03/10/19 05:38 ALT 30 Units/L (12-78) 03/10/19 05:38 Alkaline Phosphatase 49 Units/L (46-116) 03/10/19 05:38 Creatine Kinase 106 Units/L (26-192) 03/08/19 15:37 CK-MB (CK-2) 1.6 ng/mL (0-4.0) 03/08/19 15:37 CK/CKMB % Calc 1.5 % (<4) 03/08/19 15:37 Troponin I < 0.02 ng/mL (0-1.5) 03/08/19 15:37 Total Protein 6.3 g/dL (6.4-8.2) L 03/10/19 05:38 Albumin 2.6 g/dL (3.4-5.0) L 03/10/19 05:38 Globulin 3.7 g/dL (2.5-4.5) 03/10/19 05:38 Albumin/Globulin Ratio 0.7 Ratio (1.1-2.1) L 03/10/19 05:38 Amylase 119 Units/L (25-115) H 03/09/19 05:50 Lipase 369 Units/L (73-393) 03/09/19 05:50 Specimen Type Clean catch urine 03/08/19 15:33 Urine Color Yellow (YELLOW) 03/08/19 15:33 Urine Appearance Clear (CLEAR) 03/08/19 15:33 Urine pH 7.0 (5.0 - 8.0) 03/08/19 15:33 Ur Specific [place] 1.010 (1.000-1.030) 03/08/19 15:33 Urine Protein 1+ (NEGATIVE) 03/08/19 15:33 Urine Glucose (UA) Negative (NEGATIVE) 03/08/19 15:33 Urine Ketones Negative (NEGATIVE) 03/08/19 15:33 Urine Occult Blood Negative (NEGATIVE) 03/08/19 15:33 Urine Nitrite Negative (NEGATIVE) 03/08/19 15:33 Urine Bilirubin Negative (NEGATIVE) 03/08/19 15:33 Urine Urobilinogen Normal (NORMAL) 03/08/19 15:33 Ur Leukocyte Esterase Negative (NEGATIVE) 03/08/19 15:33 Urine RBC 0-2 /HPF (0-3) 03/08/19 15:33 Urine WBC 0-2 /HPF (0-5) 03/08/19 15:33 Ur Squamous Epith Cells Rare /HPF (NEGATIVE) 03/08/19 15:33 Urine Bacteria Negative /HPF (NEGATIVE) 03/08/19 15:33 Ur Culture Indicated? No/not indicated 03/08/19 15:33 Tissue Pathology To follow 03/09/19 13:40 - Assessment and Plan 1: s/p lap vikram for acute cholecystitis with perforation and abscess formation mild pancreatitis . same PO care , IV ATB . full liquid diet . OOB ambulatory . will keep ULISSES . - Problem Patient Problems: Patient Problems Acute cholecystitis (Acute) K81.0 Cholelithiasis (Acute) K80.20 Abdominal pain, RUQ (Acute) R10.11
[2019-03-10] MEDS ORDERED: NORCO 7.5/325 MG TAB ONE (11:12)
[2019-03-10] MEDS: NORCO 7.5/325 MG TAB PO PRN ×2 (11:15→19:24)
[2019-03-10] MEDS ORDERED: COLACE CAP 100 MG PO ONE (17:07)
[2019-03-10] MEDS: COLACE CAP 100 MG PO SCH (20:17)
[2019-03-11] MEDS: FLAGYL IV PREMIX 500 MG BAG 500 MG/100 ML BAG IV SCH ×4 (03:15→20:34)
[2019-03-11] MEDS: ZOSYN VIAL 3.375 GRAMS 3.375 G in NS 100 ML IV + SPIKE MINIBAG* 100 ML IV SCH ×3 (05:30→22:00)
[2019-03-11 06:04] LABS: BASOPHILS # (AUTO) 0.1 X10^3/uL (0.0-0.1); BASOPHILS % (AUTO) 0.6 % (0.2-1.0); EOSINOPHILS # (AUTO) 0.3 x10^3/uL (0.0-0.2); EOSINOPHILS % (AUTO) 2.8 % (0.9-2.9); HEMATOCRIT 32.8 % (36.0-47.0); HEMOGLOBIN 10.9 g/dL (12.0-16.0); LYMPHOCYTES # (AUTO) 1.7 X10^3/uL (1.3-2.9); LYMPHOCYTES % (AUTO) 14.1 % (21.0-51.0); MEAN CORPUSCULAR HEMOGLOBIN 28.9 pg (27.0-34.0); MEAN CORPUSCULAR HGB CONC 33.1 g/dL (33.0-35.0); MEAN CORPUSCULAR VOLUME 87.4 fL (80.0-100.0); MEAN PLATELET VOLUME 6.8 fL (7.4-11.0); NEUTROPHILS # (AUTO) 9.2 x10^3/uL (2.2-4.8); NEUTROPHILS % (AUTO) 74.5 % (42.0-75.0); PLATELET COUNT 287 X10^3/uL (150.0-450.0); RED BLOOD COUNT 3.75 X10^6/uL (3.5-5.4); RED CELL DISTRIBUTION WIDTH 14.8 % (11.6-16.5); WHITE BLOOD COUNT 12.4 X10^3/uL (3.6-10.0)
[2019-03-11 06:17] LABS: ALBUMIN 2.4 g/dL (3.4-5.0); CALCIUM 8.3 mg/dL (8.5-10.1); CARBON DIOXIDE 29.3 mmol/L (21-32); COR CA(FOR HYPOALB) 9.6 mg/dL (8.5-10.1); CREATININE 1.27 mg/dL (0.55-1.02); TOTAL PROTEIN 6.1 g/dL (6.4-8.2)
[2019-03-11] MEDS: D5 1/2 NS 1000 ML 1,000 ML IV SCH ×3 (06:20→17:27)
[2019-03-11] MEDS: NORCO 7.5/325 MG TAB PO PRN ×2 (07:30→20:33)
[2019-03-11] MEDS: PROTONIX INJ 40 MG VIAL IVP SCH (09:41)
[2019-03-11] MEDS: LOVENOX INJ 40 MG SYR SC SCH (09:42)
[2019-03-11] MEDS ORDERED: HYDROGEN PEROXIDE 3% ONE (11:33)
--- NOTE | 2019-03-11 12:35 | DR.PROGNOT ---
Hospital Progress Notes - Progress Note for Day of: Progress Note Date: 03/11/19 - Chief Complaint Chief Complaint: post op lap vikram and drainage . less abdominal pain . no nausea or vomiting . minimal drainage in ULISSES . improving lab work and renal function. ULISSES was removed . - Past Medical Family Social History Past Med/Fam/Surg Hx: No changes since H&P Allergies: Allergies azithromycin Allergy (Verified 03/08/19 14:43) - Review Of Systems ROS: No change since H&P - Vital Signs Vital Signs: Temperature 98.9 F Pulse Rate [Right Brachial] 75 Pulse Rate 69 Respiratory Rate 18 Blood Pressure [Left Arm] 152/70 Blood Pressure [Right Arm] 143/64 Blood Pressure 182/86 O2 Sat by Pulse Oximetry 94 - Physical Exam Oriented: Normal Eyes: Normal Ear: Normal Nose: Normal Throat: Normal Respiratory: Normal Cardiovascular: Normal : Normal GI:Auscultation: Normal GI:Palpation: Normal GI: Tenderness: RUQ, Epigastric (soft abdomen , BS+) Skin: Normal Musculoskeletal: Normal Psychiatric: Normal Mood Description: Calm Affect: Normal Speech Pattern: Clear, Appropriate - Laboratory and Diagnostics Result Diagrams: 03/11/19 05:11 03/11/19 05:11 Labs: 03/09/19 12:26 Gallbladder Fluid - Final Enterobacter Cloacae Laboratory WBC 12.4 X10^3/uL (3.6-10.0) H 03/11/19 05:11 RBC 3.75 X10^6/uL (3.5-5.4) 03/11/19 05:11 Hgb 10.9 g/dL (12.0-16.0) L 03/11/19 05:11 Hct 32.8 % (36.0-47.0) L 03/11/19 05:11 MCV 87.4 fL (80.0-100.0) 03/11/19 05:11 MCH 28.9 pg (27.0-34.0) 03/11/19 05:11 MCHC 33.1 g/dL (33.0-35.0) 03/11/19 05:11 RDW 14.8 % (11.6-16.5) 03/11/19 05:11 Plt Count 287 X10^3/uL (150.0-450.0) 03/11/19 05:11 MPV 6.8 fL (7.4-11.0) L 03/11/19 05:11 Neut % (Auto) 74.5 % (42.0-75.0) 03/11/19 05:11 Lymph % (Auto) 14.1 % (21.0-51.0) L 03/11/19 05:11 [place] % (Auto) 8.0 % (0.0-13.0) 03/11/19 05:11 Eos % (Auto) 2.8 % (0.9-2.9) 03/11/19 05:11 Baso % (Auto) 0.6 % (0.2-1.0) 03/11/19 05:11 Neut # (Auto) 9.2 x10^3/uL (2.2-4.8) H 03/11/19 05:11 Lymph # (Auto) 1.7 X10^3/uL (1.3-2.9) 03/11/19 05:11 [place] # (Auto) 1.0 x10^3/uL (0.3-0.8) H 03/11/19 05:11 Eos # (Auto) 0.3 x10^3/uL (0.0-0.2) H 03/11/19 05:11 Baso # (Auto) 0.1 X10^3/uL (0.0-0.1) 03/11/19 05:11 Absolute Nucleated RBC 0.0 /100WBC 03/11/19 05:11 Sodium 141 mmol/L (136-145) 03/11/19 05:11 Corrected Sodium 141 mmol/L (136-145) 03/11/19 05:11 Potassium 3.9 mmol/L (3.5-5.1) 03/11/19 05:11 Chloride 106 mmol/L (98-107) 03/11/19 05:11 Carbon Dioxide 29.3 mmol/L (21-32) 03/11/19 05:11 BUN 18 mg/dL (7-18) 03/11/19 05:11 Creatinine 1.27 mg/dL (0.55-1.02) H 03/11/19 05:11 Est GFR (MDRD) Af Amer 53 (>60) L 03/11/19 05:11 Est GFR (MDRD) Non-Af 44 (>60) L 03/11/19 05:11 Glucose 117 mg/dL (65-99) H 03/11/19 05:11 Calcium 8.3 mg/dL (8.5-10.1) L 03/11/19 05:11 Corrected Calcium 9.6 mg/dL (8.5-10.1) 03/11/19 05:11 Total Bilirubin 0.60 mg/dL (0.2-1.0) 03/11/19 05:11 AST 22 Units/L (15-37) 03/11/19 05:11 ALT 19 Units/L (12-78) 03/11/19 05:11 Alkaline Phosphatase 49 Units/L (46-116) 03/11/19 05:11 Creatine Kinase 106 Units/L (26-192) 03/08/19 15:37 CK-MB (CK-2) 1.6 ng/mL (0-4.0) 03/08/19 15:37 CK/CKMB % Calc 1.5 % (<4) 03/08/19 15:37 Troponin I < 0.02 ng/mL (0-1.5) 03/08/19 15:37 Total Protein 6.1 g/dL (6.4-8.2) L 03/11/19 05:11 Albumin 2.4 g/dL (3.4-5.0) L 03/11/19 05:11 Globulin 3.7 g/dL (2.5-4.5) 03/11/19 05:11 Albumin/Globulin Ratio 0.6 Ratio (1.1-2.1) L 03/11/19 05:11 Amylase 119 Units/L (25-115) H 03/09/19 05:50 Lipase 369 Units/L (73-393) 03/09/19 05:50 Specimen Type Clean catch urine 03/08/19 15:33 Urine Color Yellow (YELLOW) 03/08/19 15:33 Urine Appearance Clear (CLEAR) 03/08/19 15:33 Urine pH 7.0 (5.0 - 8.0) 03/08/19 15:33 Ur Specific [place] 1.010 (1.000-1.030) 03/08/19 15:33 Urine Protein 1+ (NEGATIVE) 03/08/19 15:33 Urine Glucose (UA) Negative (NEGATIVE) 03/08/19 15:33 Urine Ketones Negative (NEGATIVE) 03/08/19 15:33 Urine Occult Blood Negative (NEGATIVE) 03/08/19 15:33 Urine Nitrite Negative (NEGATIVE) 03/08/19 15:33 Urine Bilirubin Negative (NEGATIVE) 03/08/19 15:33 Urine Urobilinogen Normal (NORMAL) 03/08/19 15:33 Ur Leukocyte Esterase Negative (NEGATIVE) 03/08/19 15:33 Urine RBC 0-2 /HPF (0-3) 03/08/19 15:33 Urine WBC 0-2 /HPF (0-5) 03/08/19 15:33 Ur Squamous Epith Cells Rare /HPF (NEGATIVE) 03/08/19 15:33 Urine Bacteria Negative /HPF (NEGATIVE) 03/08/19 15:33 Ur Culture Indicated? No/not indicated 03/08/19 15:33 Tissue Pathology To follow 03/09/19 13:40 - Assessment and Plan 1: s/p lap vikram for acute cholecystitis with perforation and abscess formation, mild pancreatitis . same PO care , IVF and ATB . low fat diet . OOB ambulatory . will keep ULISSES . - Problem Patient Problems: Patient Problems Acute cholecystitis (Acute) K81.0 Cholelithiasis (Acute) K80.20 Abdominal pain, RUQ (Acute) R10.11
[2019-03-11 13:42] LABS: AMYLASE 45 Units/L (25-115); LIPASE 85 Units/L (73-393)
[2019-03-11] MEDS: COLACE CAP 100 MG PO SCH (20:33)
[2019-03-12] MEDS: FLAGYL IV PREMIX 500 MG BAG 500 MG/100 ML BAG IV SCH ×2 (03:05→08:53)
[2019-03-12] MEDS: ZOSYN VIAL 3.375 GRAMS 3.375 G in NS 100 ML IV + SPIKE MINIBAG* 100 ML IV SCH (05:01)
[2019-03-12 06:06] LABS: BASOPHILS # (AUTO) 0.1 X10^3/uL (0.0-0.1); BASOPHILS % (AUTO) 0.6 % (0.2-1.0); EOSINOPHILS # (AUTO) 0.3 x10^3/uL (0.0-0.2); EOSINOPHILS % (AUTO) 2.4 % (0.9-2.9); HEMATOCRIT 34.1 % (36.0-47.0); HEMOGLOBIN 11.2 g/dL (12.0-16.0); LYMPHOCYTES # (AUTO) 1.7 X10^3/uL (1.3-2.9); MEAN CORPUSCULAR HGB CONC 32.8 g/dL (33.0-35.0); MEAN CORPUSCULAR VOLUME 88.2 fL (80.0-100.0); MEAN PLATELET VOLUME 6.9 fL (7.4-11.0); MONOCYTES # (AUTO) 0.9 x10^3/uL (0.3-0.8); MONOCYTES % (AUTO) 7.1 % (0.0-13.0); NEUTROPHILS # (AUTO) 9.2 x10^3/uL (2.2-4.8); NEUTROPHILS % (AUTO) 75.9 % (42.0-75.0); PLATELET COUNT 300 X10^3/uL (150.0-450.0); RED BLOOD COUNT 3.87 X10^6/uL (3.5-5.4); RED CELL DISTRIBUTION WIDTH 14.7 % (11.6-16.5); WHITE BLOOD COUNT 12.2 X10^3/uL (3.6-10.0)
[2019-03-12 06:13] LABS: BLOOD UREA NITROGEN 18 mg/dL (7-18); CALCIUM 8.5 mg/dL (8.5-10.1); CARBON DIOXIDE 28.1 mmol/L (21-32); CHLORIDE 107 mmol/L (98-107); COR NA(FOR HYPERGLY) 144 mmol/L (136-145); SODIUM 143 mmol/L (136-145); eGFR NON BLACK RACES 52 (>60)
[2019-03-12 06:32] LABS: ALANINE AMINOTRANSFERASE 16 Units/L (12-78); ALBUMIN 2.3 g/dL (3.4-5.0); ALKALINE PHOSPHATASE 51 Units/L (46-116); ASPARTATE AMINO TRANSFERASE 14 Units/L (15-37); COR CA(FOR HYPOALB) 9.9 mg/dL (8.5-10.1); TOTAL PROTEIN 6.1 g/dL (6.4-8.2)
[2019-03-12] MEDS ORDERED: MILK OF MAGNESIA PO PRN (06:36)
[2019-03-12] MEDS: D5 1/2 NS 1000 ML 1,000 ML IV SCH ×2 (07:06→09:28)
[2019-03-12] MEDS ORDERED: K-RIDER 10 MEQ/NS 100 ML 10 MEQ/100 ML BAG IV PRN (07:08)
[2019-03-12] MEDS ORDERED: POTASSIUM CHL 60 MEQ/NS 0.45% 500 ML IV PRN (07:08)
[2019-03-12] MEDS ORDERED: POTASSIUM CHL 40 MEQ/NS 0.45% 500 ML IV PRN (07:08)
[2019-03-12] MEDS ORDERED: MICRO K EXTEN CAP 10 MEQ PO PRN (07:08)
[2019-03-12] MEDS ORDERED: POTASSIUM CHLORIDE LIQ 20 MEQ UDC PO PRN (07:08)
[2019-03-12] MEDS ORDERED: KLOR-CON PO PRN (07:08)
[2019-03-12] MEDS ORDERED: K-DUR TAB 20 MEQ PO PRN (07:08)
[2019-03-12] MEDS: LOVENOX INJ 40 MG SYR SC SCH (08:53)
[2019-03-12] MEDS: PROTONIX INJ 40 MG VIAL IVP SCH (08:54)
--- NOTE | 2019-03-12 09:57 | PCM.PROG ---
Progress Note - Progress Note for Day of Date of Exam: 03/10/19 - Subjective Subjective: WAS ADMITTED FOR CHOLELITHIASIS, ACUTE CHOLECYSTITIS, AND RUQ ABDOMINAL PAIN. SHE IS DAY 1 STATUS POST CHOLECYSTECTOMY AND LYSIS OF ABDOMINAL ADHESION. A ULISSES DRAIN WAS LEFT IN PLACE. TODAY, SHE IS LAERT AND ORIENTED, LYING IN BED ON MORNING ROUNDS. SHE CONTINUES WITH COMPLAINTS OF AB DOMINAL PAIN. THERE IS MINIMAL DRAINAGE NOTED IN HER ULISSES DRAIN. NO SIGNS OR SX INFECTION NOTED TO SURGICAL SITE. HER VITALS THIS MORNING ARE: 98.0-68-18-95%-153/74. LABS WERE OBTAINED. ABNORMAL LAB VALUES INCLUDE THE FOLLOWING: WBC 14.0, HGB 11.2, HCT 33.5, BUN 26, CREATININE 1.31, GLUCOSE 151, CALCIUM 8.4, TOTAL PROTEIN 6.3, ALBUMIN 2.6. GALLBALDDER FLUID CULTURE IS PENDING. SHE IS CURRENTLY RECEIVING IV ZOSYN, IV FLAGYL, IV ZOFRAN, PROTONIX, NORCO, DILAUDID, AND D51/2 NS AT 125ML/HR. WE WILL CONTINUE WITH CURRENT PLAN OF CARE TODAY AND ADVANCE HER DIET. OTHERWISE, WE WILL FOLLOW UP WITH AM LABS AND CONTINUE TO MONITOR. - Past Medical Family Social History Past Med/Fam/Surg Hx: No changes since H&P Allergies: Allergies azithromycin Allergy (Verified 03/08/19 14:43) - Review of Systems ROS: No change since H&P - Vital Signs and I&O's Vital Signs: Temperature 98.9 F Pulse Rate [Right Brachial] 86 Pulse Rate 69 Respiratory Rate 18 Blood Pressure [Left Arm] 176/84 Blood Pressure [Right Arm] 143/64 Blood Pressure 182/86 O2 Sat by Pulse Oximetry 98 Intake and Output: Intake & Output 03/09/19 03/10/19 03/11/19 03/12/19 11:59 11:59 11:59 11:59 Intake Total 1250 / 1250 8095 / 8095 4780 / 4780 2500 / 2500 Output Total 6150 / 6150 135 / 135 Balance 1250 / 1250 194 / 194 4645 / 4645 2500 / 2500 - Physical Exam Oriented: Normal Eyes: Normal Ear: Normal Nose: Normal Throat: Normal Respiratory: Normal Cardiovascular: Normal : Normal Auscultation: Bowel Sounds: Normal Palpation: Normal Tenderness: RUQ, Epigastric (soft abdomen , BS+) Skin: Wound (SURGICAL WOUNDS ) Musculoskeletal: Normal Psychiatric: Normal Mood Description: Calm Affect: Normal Speech Pattern: Clear, Appropriate - Laboratory and Diagnostics Result Diagrams: 03/12/19 05:16 03/12/19 05:16 Labs: 03/09/19 12:26 Gallbladder Fluid - Final Enterobacter Cloacae Laboratory WBC 12.2 X10^3/uL (3.6-10.0) H 03/12/19 05:16 RBC 3.87 X10^6/uL (3.5-5.4) 03/12/19 05:16 Hgb 11.2 g/dL (12.0-16.0) L 03/12/19 05:16 Hct 34.1 % (36.0-47.0) L 03/12/19 05:16 MCV 88.2 fL (80.0-100.0) 03/12/19 05:16 MCH 29.0 pg (27.0-34.0) 03/12/19 05:16 MCHC 32.8 g/dL (33.0-35.0) L 03/12/19 05:16 RDW 14.7 % (11.6-16.5) 03/12/19 05:16 Plt Count 300 X10^3/uL (150.0-450.0) 03/12/19 05:16 MPV 6.9 fL (7.4-11.0) L 03/12/19 05:16 Neut % (Auto) 75.9 % (42.0-75.0) H 03/12/19 05:16 Lymph % (Auto) 14.0 % (21.0-51.0) L 03/12/19 05:16 [place] % (Auto) 7.1 % (0.0-13.0) 03/12/19 05:16 Eos % (Auto) 2.4 % (0.9-2.9) 03/12/19 05:16 Baso % (Auto) 0.6 % (0.2-1.0) 03/12/19 05:16 Neut # (Auto) 9.2 x10^3/uL (2.2-4.8) H 03/12/19 05:16 Lymph # (Auto) 1.7 X10^3/uL (1.3-2.9) 03/12/19 05:16 [place] # (Auto) 0.9 x10^3/uL (0.3-0.8) H 03/12/19 05:16 Eos # (Auto) 0.3 x10^3/uL (0.0-0.2) H 03/12/19 05:16 Baso # (Auto) 0.1 X10^3/uL (0.0-0.1) 03/12/19 05:16 Absolute Nucleated RBC 0.0 /100WBC 03/12/19 05:16 Sodium 143 mmol/L (136-145) 03/12/19 05:16 Corrected Sodium 144 mmol/L (136-145) 03/12/19 05:16 Potassium 3.6 mmol/L (3.5-5.1) 03/12/19 05:16 Chloride 107 mmol/L (98-107) 03/12/19 05:16 Carbon Dioxide 28.1 mmol/L (21-32) 03/12/19 05:16 BUN 18 mg/dL (7-18) 03/12/19 05:16 Creatinine 1.10 mg/dL (0.55-1.02) H 03/12/19 05:16 Est GFR (MDRD) Af Amer > 60 (>60) 03/12/19 05:16 Est GFR (MDRD) Non-Af 52 (>60) L 03/12/19 05:16 Glucose 135 mg/dL (65-99) H 03/12/19 05:16 Calcium 8.5 mg/dL (8.5-10.1) 03/12/19 05:16 Corrected Calcium 9.9 mg/dL (8.5-10.1) 03/12/19 05:16 Magnesium 1.8 mg/dL (1.7-2.9) 03/12/19 05:16 Total Bilirubin 0.30 mg/dL (0.2-1.0) 03/12/19 05:16 AST 14 Units/L (15-37) L 03/12/19 05:16 ALT 16 Units/L (12-78) 03/12/19 05:16 Alkaline Phosphatase 51 Units/L (46-116) 03/12/19 05:16 Creatine Kinase 106 Units/L (26-192) 03/08/19 15:37 CK-MB (CK-2) 1.6 ng/mL (0-4.0) 03/08/19 15:37 CK/CKMB % Calc 1.5 % (<4) 03/08/19 15:37 Troponin I < 0.02 ng/mL (0-1.5) 03/08/19 15:37 Total Protein 6.1 g/dL (6.4-8.2) L 03/12/19 05:16 Albumin 2.3 g/dL (3.4-5.0) L 03/12/19 05:16 Globulin 3.8 g/dL (2.5-4.5) 03/12/19 05:16 Albumin/Globulin Ratio 0.6 Ratio (1.1-2.1) L 03/12/19 05:16 Amylase 45 Units/L (25-115) 03/11/19 12:42 Lipase 85 Units/L (73-393) 03/11/19 12:42 Specimen Type Clean catch urine 03/08/19 15:33 Urine Color Yellow (YELLOW) 03/08/19 15:33 Urine Appearance Clear (CLEAR) 03/08/19 15:33 Urine pH 7.0 (5.0 - 8.0) 03/08/19 15:33 Ur Specific [place] 1.010 (1.000-1.030) 03/08/19 15:33 Urine Protein 1+ (NEGATIVE) 03/08/19 15:33 Urine Glucose (UA) Negative (NEGATIVE) 03/08/19 15:33 Urine Ketones Negative (NEGATIVE) 03/08/19 15:33 Urine Occult Blood Negative (NEGATIVE) 03/08/19 15:33 Urine Nitrite Negative (NEGATIVE) 03/08/19 15:33 Urine Bilirubin Negative (NEGATIVE) 03/08/19 15:33 Urine Urobilinogen Normal (NORMAL) 03/08/19 15:33 Ur Leukocyte Esterase Negative (NEGATIVE) 03/08/19 15:33 Urine RBC 0-2 /HPF (0-3) 03/08/19 15:33 Urine WBC 0-2 /HPF (0-5) 03/08/19 15:33 Ur Squamous Epith Cells Rare /HPF (NEGATIVE) 03/08/19 15:33 Urine Bacteria Negative /HPF (NEGATIVE) 03/08/19 15:33 Ur Culture Indicated? No/not indicated 03/08/19 15:33 Tissue Pathology To follow 03/09/19 13:40 - Plan (1) Acute cholecystitis Status: Acute Plan: STATUS POST LAPCHOLE, D51/2NS AT 125ML/HR, ZOSYN 3.375G IV TID, ZOFRAN 4MG IV Q6H PRN, DILAUDID, NORCO, AND FLAGYL 500MG IV Q6H. (2) Cholelithiasis Status: Acute Qualifiers: Cholelithiasis location: gallbladder Cholecystitis presence: with cholecystitis Cholecystitis acuity: acute Biliary obstruction: without biliary obstruction Qualified Code(s): K80.00 - Calculus of gallbladder with acute cholecystitis without obstruction (3) Abdominal pain, RUQ Status: Acute
--- NOTE | 2019-03-12 10:01 | PCM.PROG ---
Progress Note - Progress Note for Day of Date of Exam: 03/11/19 - Subjective Subjective: WAS ADMITTED FOR CHOLELITHIASIS, ACUTE CHOLECYSTITIS, AND RUQ ABDOMINAL PAIN. SHE IS DAY 1 STATUS POST CHOLECYSTECTOMY AND LYSIS OF ABDOMINAL ADHESION. REMOVED DRAIN THIS MORNING. TODAY, SHE IS ALERT AND ORIENTED, LYING IN BED ON MORNING ROUNDS. SHE CONTINUES WITH COMPLAINTS OF ABDOMINAL PAIN. NO SIGNS OR SX INFECTION NOTED TO SURGICAL SITE. HER VITALS THIS MORNING ARE: 98.2-78-18-93%-152/70. LABS WERE OBTAINED. ABNORMAL LAB VALUES INCLUDE THE FOLLOWING: WBC 12.4, HGB 10.9, HCT 32.8, CREATININE 1.27, GLUCOSE 117, CALCIUM 8.3, TOTAL PROTEIN 6.1, ALBUMIN 2.4. GALLBALDDER FLUID CULTURE REPORTS GROWTH OF ENTEROBACTER CLOACAE. SHE IS CURRENTLY RECEIVING IV ZOSYN, IV FLAGYL, IV ZOFRAN, PROTONIX, NORCO, DILAUDID, AND D51/2 NS AT 125ML/HR. WE WILL CONTINUE WITH CURRENT PLAN OF CARE TODAY AND ADVANCE HER DIET. OTHERWISE, WE WILL FOLLOW UP WITH AM LABS AND CONTINUE TO MONITOR. - Past Medical Family Social History Past Med/Fam/Surg Hx: No changes since H&P Allergies: Allergies azithromycin Allergy (Verified 03/08/19 14:43) - Review of Systems ROS: No change since H&P - Vital Signs and I&O's Vital Signs: Temperature 98.9 F Pulse Rate [Right Brachial] 86 Pulse Rate 69 Respiratory Rate 18 Blood Pressure [Left Arm] 176/84 Blood Pressure [Right Arm] 143/64 Blood Pressure 182/86 O2 Sat by Pulse Oximetry 98 Intake and Output: Intake & Output 03/09/19 03/10/19 03/11/19 03/12/19 11:59 11:59 11:59 11:59 Intake Total 1250 / 1250 8095 / 8095 4780 / 4780 2500 / 2500 Output Total 6150 / 6150 135 / 135 Balance 1250 / 1250 1945 / 1945 4645 / 4645 2500 / 2500 - Physical Exam Oriented: Normal Eyes: Normal Ear: Normal Nose: Normal Throat: Normal Respiratory: Normal Cardiovascular: Normal : Normal Auscultation: Bowel Sounds: Normal Palpation: Normal Tenderness: RUQ, Epigastric (soft abdomen , BS+) Skin: Wound (SURGICAL WOUNDS ) Musculoskeletal: Normal Psychiatric: Normal Mood Description: Calm Affect: Normal Speech Pattern: Clear, Appropriate - Laboratory and Diagnostics Result Diagrams: 03/12/19 05:16 03/12/19 05:16 Labs: 03/09/19 12:26 Gallbladder Fluid - Final Enterobacter Cloacae Laboratory WBC 12.2 X10^3/uL (3.6-10.0) H 03/12/19 05:16 RBC 3.87 X10^6/uL (3.5-5.4) 03/12/19 05:16 Hgb 11.2 g/dL (12.0-16.0) L 03/12/19 05:16 Hct 34.1 % (36.0-47.0) L 03/12/19 05:16 MCV 88.2 fL (80.0-100.0) 03/12/19 05:16 MCH 29.0 pg (27.0-34.0) 03/12/19 05:16 MCHC 32.8 g/dL (33.0-35.0) L 03/12/19 05:16 RDW 14.7 % (11.6-16.5) 03/12/19 05:16 Plt Count 300 X10^3/uL (150.0-450.0) 03/12/19 05:16 MPV 6.9 fL (7.4-11.0) L 03/12/19 05:16 Neut % (Auto) 75.9 % (42.0-75.0) H 03/12/19 05:16 Lymph % (Auto) 14.0 % (21.0-51.0) L 03/12/19 05:16 [place] % (Auto) 7.1 % (0.0-13.0) 03/12/19 05:16 Eos % (Auto) 2.4 % (0.9-2.9) 03/12/19 05:16 Baso % (Auto) 0.6 % (0.2-1.0) 03/12/19 05:16 Neut # (Auto) 9.2 x10^3/uL (2.2-4.8) H 03/12/19 05:16 Lymph # (Auto) 1.7 X10^3/uL (1.3-2.9) 03/12/19 05:16 [place] # (Auto) 0.9 x10^3/uL (0.3-0.8) H 03/12/19 05:16 Eos # (Auto) 0.3 x10^3/uL (0.0-0.2) H 03/12/19 05:16 Baso # (Auto) 0.1 X10^3/uL (0.0-0.1) 03/12/19 05:16 Absolute Nucleated RBC 0.0 /100WBC 03/12/19 05:16 Sodium 143 mmol/L (136-145) 03/12/19 05:16 Corrected Sodium 144 mmol/L (136-145) 03/12/19 05:16 Potassium 3.6 mmol/L (3.5-5.1) 03/12/19 05:16 Chloride 107 mmol/L (98-107) 03/12/19 05:16 Carbon Dioxide 28.1 mmol/L (21-32) 03/12/19 05:16 BUN 18 mg/dL (7-18) 03/12/19 05:16 Creatinine 1.10 mg/dL (0.55-1.02) H 03/12/19 05:16 Est GFR (MDRD) Af Amer > 60 (>60) 03/12/19 05:16 Est GFR (MDRD) Non-Af 52 (>60) L 03/12/19 05:16 Glucose 135 mg/dL (65-99) H 03/12/19 05:16 Calcium 8.5 mg/dL (8.5-10.1) 03/12/19 05:16 Corrected Calcium 9.9 mg/dL (8.5-10.1) 03/12/19 05:16 Magnesium 1.8 mg/dL (1.7-2.9) 03/12/19 05:16 Total Bilirubin 0.30 mg/dL (0.2-1.0) 03/12/19 05:16 AST 14 Units/L (15-37) L 03/12/19 05:16 ALT 16 Units/L (12-78) 03/12/19 05:16 Alkaline Phosphatase 51 Units/L (46-116) 03/12/19 05:16 Creatine Kinase 106 Units/L (26-192) 03/08/19 15:37 CK-MB (CK-2) 1.6 ng/mL (0-4.0) 03/08/19 15:37 CK/CKMB % Calc 1.5 % (<4) 03/08/19 15:37 Troponin I < 0.02 ng/mL (0-1.5) 03/08/19 15:37 Total Protein 6.1 g/dL (6.4-8.2) L 03/12/19 05:16 Albumin 2.3 g/dL (3.4-5.0) L 03/12/19 05:16 Globulin 3.8 g/dL (2.5-4.5) 03/12/19 05:16 Albumin/Globulin Ratio 0.6 Ratio (1.1-2.1) L 03/12/19 05:16 Amylase 45 Units/L (25-115) 03/11/19 12:42 Lipase 85 Units/L (73-393) 03/11/19 12:42 Specimen Type Clean catch urine 03/08/19 15:33 Urine Color Yellow (YELLOW) 03/08/19 15:33 Urine Appearance Clear (CLEAR) 03/08/19 15:33 Urine pH 7.0 (5.0 - 8.0) 03/08/19 15:33 Ur Specific [place] 1.010 (1.000-1.030) 03/08/19 15:33 Urine Protein 1+ (NEGATIVE) 03/08/19 15:33 Urine Glucose (UA) Negative (NEGATIVE) 03/08/19 15:33 Urine Ketones Negative (NEGATIVE) 03/08/19 15:33 Urine Occult Blood Negative (NEGATIVE) 03/08/19 15:33 Urine Nitrite Negative (NEGATIVE) 03/08/19 15:33 Urine Bilirubin Negative (NEGATIVE) 03/08/19 15:33 Urine Urobilinogen Normal (NORMAL) 03/08/19 15:33 Ur Leukocyte Esterase Negative (NEGATIVE) 03/08/19 15:33 Urine RBC 0-2 /HPF (0-3) 03/08/19 15:33 Urine WBC 0-2 /HPF (0-5) 03/08/19 15:33 Ur Squamous Epith Cells Rare /HPF (NEGATIVE) 03/08/19 15:33 Urine Bacteria Negative /HPF (NEGATIVE) 03/08/19 15:33 Ur Culture Indicated? No/not indicated 03/08/19 15:33 Tissue Pathology To follow 03/09/19 13:40 - Plan (1) Acute cholecystitis Status: Acute Plan: STATUS POST LAPCHOLE, D51/2NS AT 125ML/HR, ZOSYN 3.375G IV TID, ZOFRAN 4MG IV Q6H PRN, DILAUDID, NORCO, AND FLAGYL 500MG IV Q6H. (2) Cholelithiasis Status: Acute Qualifiers: Cholelithiasis location: gallbladder Cholecystitis presence: with cholecystitis Cholecystitis acuity: acute Biliary obstruction: without biliary obstruction Qualified Code(s): K80.00 - Calculus of gallbladder with acute cholecystitis without obstruction (3) Abdominal pain, RUQ Status: Acute
[2019-03-12 12:15] VITALS: BP 154/67
== END 2019-03-12 12:10 | disposition home or self-care (01) | DRG 445 ==
LOC: MED/SURG 14:40 → ER 14:40 → MED/SURG 20:54
PROVIDERS: ADMIT Internal Medicine; ATTEND Internal Medicine
DX: I10 Essential (primary) hypertension; B96.89 Other specified bacterial agents as the cause of diseases classified elsewhere; K82.8 Other specified diseases of gallbladder; K80.00 Calculus of gallbladder with acute cholecystitis without obstruction; R10.11 Right upper quadrant pain; E86.0 Dehydration; E03.8 Other specified hypothyroidism; K66.0 Peritoneal adhesions (postprocedural) (postinfection); Z90.5 Acquired absence of kidney; K82.1 Hydrops of gallbladder; K82.A2 Perforation of gallbladder in cholecystitis; R94.31 Abnormal electrocardiogram [ECG] [EKG]
CPT/HCPCS: 36415; 71010; 71045; 74176; 80053; 81001; 82150; 82550; 82553; 83690; 83735; 84484; 85025; 87070; 87075; 87077; 87186; 88304; 93005; 96365; 96372; 99284; A4216; A4222; C9113; J3490; S0030; G0378; J0330; J0690; J1170; J1650; J1885; J2250; J2270; J2405; J2543; J2704; J2710; J3010; J7030; J7050; J7120; S5010